=== PATIENT | male | born 1945 | race African-American/Black ===

== ENCOUNTER 2016-06-27 16:34 | Emergency (ER) | payer MEDICARE ==
[~2016-06-27] VITALS: Ht 175.3 cm; Wt 85.3 kg
[2016-06-27 17:29] VITALS: BP 122/92
[2016-06-27] MEDS ORDERED: FLUT16SP NS (17:56)
[2016-06-27] MEDS ORDERED: OMEP20CA9 PO (17:57)
[2016-06-27] MEDS ORDERED: MELO-150 PO (17:58)
[2016-06-27] MEDS ORDERED: SIMV40TA3 PO (17:59)
[2016-06-27] MEDS ORDERED: LOSA1TAB16 PO (18:00)
[2016-06-27] MEDS ORDERED: DIAZEPAM10 MG PO (18:01)
[2016-06-27] MEDS ORDERED: CYCL10TA2 PO (18:02)
[2016-06-27] MEDS ORDERED: HYDR-2666 PO (18:03)
[2016-06-27] MEDS ORDERED: METO25TA9 PO (18:05)
[2016-06-27] MEDS ORDERED: IBUP-1060 PO (18:05)
[2016-06-27] MEDS ORDERED: LINA290C PO (18:06)
[2016-06-27] MEDS ORDERED: FENTANYL PF 100 MCG/2 ML VIAL. IV PRN (18:30)
[2016-06-27 18:55] LABS: BILIRUBIN,URINE NEGATIVE (NEG); GLUCOSE,URINE NEGATIVE (NEG); NITRITE,URINE NEGATIVE (NEG); PH,URINE 5.5; PROTEIN,URINE NEGATIVE (NEG-TRACE); UROBILINOGEN,URINE 0.2 mg/dL (0.2 mg/dL)
[2016-06-27 19:04] LABS: BACTERIA,URINE 0 /HPF (0-FEW); RBC,URINE 0 /HPF (0-2); SQUAMOUS EPITHELIAL CELL,UR FEW /LPF
--- NOTE | 2016-06-27 19:25 | PHYS DOC ---
Past Medical History Past Medical History: CHF, COPD, Hypertension, Other Additional Past Medical Histor: sleep apnea Past Surgical History: Tonsillectomy, Other Additional Past Surgical Histo: pituitary gland surgery, sebaceous cyst removal Additional Information: 5 cigarettes/day. Alcohol Use: Rarely Drug Use: None Adult General Chief Complaint Chief Complaint: FLANK PAIN HPI HPI Patient is a 70 year old male who presents with 4 days of gradually worsening left flank pain. States his pain is intermittent, occurs with movements or randomly. Pain feels like spasms and is severe. He started taking cyclobenzaprine per his primary care doctor but is only had one dose. He denies dysuria, hematuria, abdominal pain, nausea or vomiting, fever or chills, diarrhea, bloody stools. He denies saddle anesthesia, bowel or bladder dysfunction, numbness, tingling, weakness. Review of Systems Review of Systems Constitutional: Denies fever or chills [] Eyes: Denies change in visual acuity, redness, or eye pain [] HENT: Denies nasal congestion or sore throat [] Respiratory: Denies cough or shortness of breath [] Cardiovascular: No additional information not addressed in HPI [] GI: Denies abdominal pain, nausea, vomiting, bloody stools or diarrhea [] : Denies dysuria or hematuria [] Musculoskeletal: Denies joint pain [] Integument: Denies rash or skin lesions [] Neurologic: Denies headache, focal weakness or sensory changes [] Endocrine: Denies polyuria or polydipsia [] Current Medications Current Medications Current Medications Medications (Trade) Dose Ordered Sig/Kady Start Time Stop Time Status Last Admin Dose Admin Fentanyl Citrate (Fentanyl 2ml Vial) 50 mcg PRN Q15MIN PRN 06/27/16 18:30 06/28/16 18:29 06/27/16 19:45 50 MCG Allergies Allergies Allergies Coded Allergies Type Severity Reaction Last Updated Verified propoxyphene Allergy Unknown unknown 01/04/14 Yes Physical Exam Physical Exam Constitutional: Well developed, well nourished, no acute distress, non-toxic appearance. [] HENT: Normocephalic, atraumatic, bilateral external ears normal, oropharynx moist, nose normal. [] Eyes: PERRLA, EOMI. [] Neck: Normal range of motion, supple. [] Cardiovascular:Heart rate regular rhythm [] Lungs & Thorax: Bilateral breath sounds clear to auscultation [] Abdomen: Bowel sounds normal, soft, no tenderness, no pulsatile masses. [] Skin: Warm, dry, no erythema, no rash. [] Back: No midline spinal tenderness, no CVA tenderness. Has right flank paraspinal muscle tenderness with no visual or palpable abnormality. No rash or tenderness with light touch [] Extremities: No tenderness, ROM intact, no edema. [] Neurologic: Alert and oriented X 3, normal motor function, normal sensory function, no focal deficits noted. [] Psychologic: Affect normal, judgement normal, mood normal. [] Current Patient Data Vital Signs Vital Signs Date Time Temp Pulse Resp B/P Pulse Ox O2 Delivery O2 Flow Rate FiO2 06/27/16 19:45 Room Air 06/27/16 17:29 98.6 93 20 122/92 95 98.6 Lab Values Laboratory Tests Test 06/27/16 18:40 Urine Collection Type Unknown Urine Color Yellow Urine Clarity Clear Urine pH 5.5 Urine Specific [place] 1.010 Urine Protein Negativemg/dL (NEG-TRACE) Urine Glucose (UA) Negativemg/dL (NEG) Urine Ketones (Stick) Negativemg/dL (NEG) Urine Blood Negative (NEG) Urine Nitrite Negative (NEG) Urine Bilirubin Negative (NEG) Urine Urobilinogen Dipstick 0.2mg/dL (0.2 mg/dL) Urine Leukocyte Esterase Negative (NEG) Urine RBC 0/HPF (0-2) Urine WBC 1-4/HPF (0-4) Urine Squamous Epithelial Cells Few/LPF Urine Bacteria 0/HPF (0-FEW) Urine Mucus Slight/LPF Radiology/Procedures Radiology/Procedures Ultrasound abdominal aorta IMPRESSION No acute findings. Electronically signed by: Marty Santos MD (Jun 27, 2016 19:44:11) Course & Med Decision Making Course & Med Decision Making Pertinent Labs and Imaging studies reviewed. (See chart for details) Workup is unremarkable. Suspect musculoskeletal pain. Encouraged him to continue muscle relaxer and to follow-up with his primary care doctor. Return precautions given. He and understand and agree with plan. Dragon Disclaimer Dragon Disclaimer This electronic medical record was generated, in whole or in part, using a voice recognition dictation system. Departure Departure Impression: Primary Impression: Right flank pain Disposition: 01 HOME, SELF-CARE Condition: STABLE Referrals: ANATOLIY ZHU MD (PCP) Patient Instructions: Flank Pain, [id number] Additional Instructions: Continue taking cyclobenzaprine as needed for muscle spasms. Follow-up with your primary care doctor. Return for any concerns. Maritza MARKHAM MD Jun 27, 2016 19:25
--- NOTE | 2016-06-27 19:45 | RAD ---
PROCEDURE Ultrasound abdominal aorta HISTORY Right flank pain TECHNIQUE Sonographic examination of the abdominal aorta was performed and multiple static images were obtained. Color Doppler was applied as well as arterial waveforms spectral analysis. FINDINGS The proximal abdominal aorta is not seen due to overlying bowel gas. There is minimal plaque seen in the mid and distal abdominal aorta without aneurysm or dissection or stenosis. IMPRESSION No acute findings. Electronically signed by: Maryt Santos MD (Jun 27, 2016 19:44:11)
== END 2016-06-27 21:12 | disposition home or self-care (01) ==
LOC: ER 16:34
DX: R10.9 Unspecified abdominal pain (principal); J44.9 Chronic obstructive pulmonary disease, unspecified; I11.0 Hypertensive heart disease with heart failure; I50.9 Heart failure, unspecified; G47.30 Sleep apnea, unspecified; F17.210 Nicotine dependence, cigarettes, uncomplicated; Z88.8 Allergy status to other drugs, medicaments and biological substances
CPT/HCPCS: 36415; 76770; 81001; 96374; 99285; J3010

== ENCOUNTER 2017-08-16 15:18 | Inpatient (IN) | payer MEDICARE ==
[2017-08-16 16:18] LABS: ADD MAN DIFF? NO
[2017-08-16 16:20] LABS: BASO % 1 % (0-3); EOS % 1 % (0-3); HEMATOCRIT 44.6 % (39.0-53.0); HEMOGLOBIN 14.9 g/dL (13.0-17.5); LYMPH # 0.9 x10^3/uL (1.0-4.8); LYMPH % 18 % (24-48); MEAN CORPUSCULAR HEMOGLOBIN 31 pg (25-35); MEAN CORPUSCULAR HGB CONC 34 g/dL (31-37); MEAN CORPUSCULAR VOLUME 93 fL (79-100); MONO # 0.3 x10^3/uL (0.0-1.1); MONO % 6 % (0-9); NEUT # 3.8 x10^3uL (1.8-7.7); NEUT % 75 % (31-73); PLATELET COUNT 204 x10^3/uL (140-400); RED BLOOD COUNT 4.78 x10^6/uL (4.30-5.70); RED CELL DISTRIBUTION WIDTH 13.7 % (11.5-14.5); WHITE BLOOD COUNT 5.1 x10^3/uL (4.0-11.0)
[2017-08-16 16:29] LABS: PROTHROMBIN TIME PATIENT 12.8 SEC (11.7-14.0)
[2017-08-16 16:38] LABS: LACTIC ACID 1.5 mmol/L (0.4-2.0)
[2017-08-16 16:43] LABS: ANION GAP 11 (6-14); BLOOD UREA NITROGEN 21 mg/dL (8-26); CALCIUM 8.7 mg/dL (8.5-10.1); CARBON DIOXIDE 25 mmol/L (21-32); CHLORIDE 105 mmol/L (98-107); CREATININE 1.4 mg/dL (0.7-1.3); GFR 60.4; GLUCOSE 111 mg/dL (70-99); POTASSIUM 4.3 mmol/L (3.5-5.1); SODIUM 141 mmol/L (136-145)
[2017-08-16 16:44] LABS: TROPONINI < 0.017 ng/mL (0.000-0.055)
[2017-08-16 16:47] LABS: ALK PHOS 66 U/L (46-116); ALT (SGPT) 15 U/L (16-63); AST (SGOT) 11 U/L (15-37); DIRECT BILIRUBIN 0.1 mg/dL (0.0-0.2); LIPASE 84 U/L (73-393); TOTAL BILIRUBIN 0.5 mg/dL (0.2-1.0)
[2017-08-16 16:48] LABS: NT-PRO BNP 169 pg/mL (0-124)
[2017-08-16 16:48] LABS: CKMB INDEX 0.6 % (0-4); CKMB MASS 0.7 ng/mL (0.0-3.6); CREATINE KINASE 110 U/L (39-308)
[2017-08-16 18:53] LABS: BILIRUBIN,URINE NEGATIVE (NEG); CLARITY,URINE CLEAR; COLOR,URINE YELLOW; GLUCOSE,URINE NEGATIVE (NEG); NITRITE,URINE NEGATIVE (NEG); PH,URINE 6.5; PROTEIN,URINE NEGATIVE (NEG-TRACE)
[2017-08-16 18:59] LABS: BACTERIA,URINE 0 /HPF (0-FEW); HYALINE CASTS, URINE FEW /HPF; RBC,URINE RARE /HPF (0-2); WBC,URINE OCC /HPF (0-4)
[2017-08-16 19:00] LABS: AMPHETAMINE/METHAMPHETAMINE NEG (NEG); BARBITURATES NEG (NEG); BENZODIAZEPINES POS (NEG); CANNABINOIDS NEG (NEG); COCAINE NEG (NEG); ETHANOL, URINE NEG (NEG); METHADONE NEG (NEG); OPIATES POS (NEG); PHENCYCLIDINE NEG (NEG)
[2017-08-16] MEDS ORDERED: ONDANSETRON PF 4 MG/2 ML VIAL. IV (19:30)
[2017-08-16] MEDS: ASPIRIN 325 MG TABLET PO (20:07)
[2017-08-16] MEDS ORDERED: HYDROcodone/APAP 5/325MG 1 TAB TABLET PO (21:45)
[2017-08-16] MEDS ORDERED: POLYETHYLENE GLYCOL 3350 17 GM PACKET. PO (21:45)
[2017-08-16] MEDS: diazePAM 5 MG TABLET PO (22:00)
[2017-08-16] MEDS: SIMVASTATIN 40 MG TABLET. PO (22:00)
[2017-08-16] MEDS: CYCLOBENZAPRINE 10 MG TABLET. PO (22:00)
[2017-08-16 23:35] LABS: TROPONINI < 0.017 ng/mL (0.000-0.055)
[2017-08-17 01:41] LABS: ADD MAN DIFF? NO
[2017-08-17 02:00] LABS: BASO % 1 % (0-3); EOS # 0.1 x10^3/uL (0.0-0.7); EOS % 1 % (0-3); HEMATOCRIT 43.6 % (39.0-53.0); HEMOGLOBIN 14.5 g/dL (13.0-17.5); LYMPH # 1.5 x10^3/uL (1.0-4.8); LYMPH % 22 % (24-48); MEAN CORPUSCULAR HEMOGLOBIN 31 pg (25-35); MEAN CORPUSCULAR HGB CONC 33 g/dL (31-37); MEAN CORPUSCULAR VOLUME 94 fL (79-100); MONO # 0.5 x10^3/uL (0.0-1.1); MONO % 8 % (0-9); NEUT # 4.7 x10^3uL (1.8-7.7); NEUT % 68 % (31-73); PLATELET COUNT 204 x10^3/uL (140-400); RED BLOOD COUNT 4.65 x10^6/uL (4.30-5.70); RED CELL DISTRIBUTION WIDTH 14.1 % (11.5-14.5); WHITE BLOOD COUNT 6.9 x10^3/uL (4.0-11.0)
[2017-08-17 02:22] LABS: TROPONINI < 0.017 ng/mL (0.000-0.055)
[2017-08-17 03:31] LABS: ALBUMIN 3.7 g/dL (3.4-5.0); ALBUMIN/GLOBULIN RATIO 1.2 (1.0-1.7); ALK PHOS 65 U/L (46-116); ALT (SGPT) 14 U/L (16-63); ANION GAP 14 (6-14); AST (SGOT) 11 U/L (15-37); BLOOD UREA NITROGEN 21 mg/dL (8-26); BUN/CREATININE RATIO 15 (6-20); CALCIUM 8.8 mg/dL (8.5-10.1); CARBON DIOXIDE 23 mmol/L (21-32); CHLORIDE 105 mmol/L (98-107); CREATININE 1.4 mg/dL (0.7-1.3); GFR 60.4; GLUCOSE 144 mg/dL (70-99); POTASSIUM 3.8 mmol/L (3.5-5.1); SODIUM 142 mmol/L (136-145); TOTAL BILIRUBIN 0.5 mg/dL (0.2-1.0); TOTAL PROTEIN 6.9 g/dL (6.4-8.2)
[2017-08-17 08:22] LABS: VITAMIN-B12 332 pg/mL (247-911)
[2017-08-17] MEDS ORDERED: NON FORMULARY ITEM (Losartan/Hydrochlorothiazide (Losartan-Hctz 50-12.5 Mg Tab) 1 EACH) PO (09:00)
[2017-08-17] MEDS: diazePAM 5 MG TABLET PO ×4 (09:00→21:08)
[2017-08-17] MEDS ORDERED: INFLUENZA VAX SCREEN BY RX. MC (09:00)
[2017-08-17] MEDS: POLYETHYLENE GLYCOL 3350 17 GM PACKET. PO (09:00)
[2017-08-17] MEDS ORDERED: METOPROLOL SUCC 24HR ER 25 MG TAB.ER.24H. PO (09:00)
[2017-08-17] MEDS: CYCLOBENZAPRINE 10 MG TABLET. PO ×3 (09:00→21:08)
[2017-08-17] MEDS ORDERED: ONDANSETRON PF 4 MG/2 ML VIAL. IV (09:30)
[2017-08-17] MEDS: FLUTICASONE 50MCG/NASAL SPRAY 16GM BOTTLE. NS (09:57)
[2017-08-17] MEDS: LOSARTAN POTASSIUM 50 MG TABLET. PO (09:58)
[2017-08-17] MEDS: hydroCHLOROthiazide 12.5 MG CAPSULE PO (09:58)
[2017-08-17] MEDS: PANTOPRAZOLE 40 MG TABLET.DR. PO (09:58)
[2017-08-17] MEDS: MELOXICAM 7.5 MG TABLET PO (09:58)
[2017-08-17] MEDS: ASPIRIN 325 MG TABLET PO (10:00)
[2017-08-17 10:26] LABS: CHOLESTEROL 159 mg/dL (0-200); HDLC 70 mg/dL (40-60); LDLC 67 mg/dL (0-100); NON-HDL CHOLESTEROL 89 mg/dL (0-129); TRIGLYCERIDES 108 mg/dL (0-150); VLDLC 22 mg/dL (0-40)
[2017-08-17 10:27] LABS: CHOLESTEROL/HDL RATIO 2.3
[2017-08-17] MEDS: GADOBUTROL 7.5 MMOL/7.5 ML VIAL IV (11:50)
[2017-08-17] MEDS: LINACLOTIDE 145 MCG CAPSULE. PO ×2 (12:45→13:26)
[2017-08-17] MEDS: CITALOPRAM 20 MG TABLET. PO (13:25)
[2017-08-17] MEDS ORDERED: PRIMIDONE 50 MG TABLET PO (14:00)
[2017-08-17] MEDS: ASPIRIN ENTERIC COATED 81 MG TABLET.DR. PO (14:49)
[2017-08-17] MEDS: SIMVASTATIN 40 MG TABLET. PO (21:08)
[2017-08-17] MEDS: ACETAMINOPHEN 500 MG TABLET PO (21:12)
[2017-08-18] MEDS: LINACLOTIDE 145 MCG CAPSULE. PO (06:04)
[2017-08-18] MEDS: CYCLOBENZAPRINE 10 MG TABLET. PO ×3 (07:46→20:08)
[2017-08-18] MEDS: POLYETHYLENE GLYCOL 3350 17 GM PACKET. PO (09:00)
[2017-08-18] MEDS: FLUTICASONE 50MCG/NASAL SPRAY 16GM BOTTLE. NS (09:00)
[2017-08-18] MEDS: diazePAM 5 MG TABLET PO ×3 (09:00→20:08)
[2017-08-18] MEDS ORDERED: ASPIRIN ENTERIC COATED 81 MG TABLET.DR. PO (09:00)
[2017-08-18] MEDS: MELOXICAM 7.5 MG TABLET PO (09:00)
[2017-08-18] MEDS: CITALOPRAM 20 MG TABLET. PO (09:02)
[2017-08-18] MEDS: PANTOPRAZOLE 40 MG TABLET.DR. PO (09:02)
[2017-08-18] MEDS: ASPIRIN ENTERIC COATED 81 MG TABLET.DR. PO (09:02)
[2017-08-18] MEDS: hydroCHLOROthiazide 12.5 MG CAPSULE PO (09:02)
[2017-08-18] MEDS: LOSARTAN POTASSIUM 50 MG TABLET. PO (09:02)
[2017-08-18] MEDS: SIMVASTATIN 40 MG TABLET. PO (20:11)
[2017-08-18 21:11] LABS: FSH 14.5 mIU/mL (1.5-12.4)
[2017-08-18 21:11] LABS: LUTEINIZING HORMONE 5.9 mIU/mL (1.7-8.6); PROLACTIN 8.9 ng/mL (4.0-15.2)
[2017-08-19] MEDS: LINACLOTIDE 145 MCG CAPSULE. PO (06:23)
[2017-08-19] MEDS: ASPIRIN ENTERIC COATED 81 MG TABLET.DR. PO (07:53)
[2017-08-19] MEDS: PANTOPRAZOLE 40 MG TABLET.DR. PO (07:53)
[2017-08-19] MEDS: FLUTICASONE 50MCG/NASAL SPRAY 16GM BOTTLE. NS (09:21)
[2017-08-19] MEDS: hydroCHLOROthiazide 12.5 MG CAPSULE PO (09:22)
[2017-08-19] MEDS: LOSARTAN POTASSIUM 50 MG TABLET. PO (09:23)
[2017-08-19] MEDS: diazePAM 5 MG TABLET PO ×3 (09:24→20:34)
[2017-08-19] MEDS: MELOXICAM 7.5 MG TABLET PO (09:24)
[2017-08-19] MEDS: POLYETHYLENE GLYCOL 3350 17 GM PACKET. PO (09:24)
[2017-08-19] MEDS: CYCLOBENZAPRINE 10 MG TABLET. PO ×3 (09:24→20:34)
[2017-08-19] MEDS: CITALOPRAM 20 MG TABLET. PO (09:24)
[2017-08-19] MEDS: SIMVASTATIN 40 MG TABLET. PO (20:34)
[2017-08-20] MEDS: LINACLOTIDE 145 MCG CAPSULE. PO ×2 (06:36→08:29)
[2017-08-20] MEDS: POLYETHYLENE GLYCOL 3350 17 GM PACKET. PO ×2 (08:27→09:00)
[2017-08-20] MEDS: MELOXICAM 7.5 MG TABLET PO (08:29)
[2017-08-20] MEDS: ACETAMINOPHEN 500 MG TABLET PO (08:29)
[2017-08-20] MEDS: CITALOPRAM 20 MG TABLET. PO (08:29)
[2017-08-20] MEDS: IBUPROFEN 800 MG TABLET. PO (08:29)
[2017-08-20] MEDS: PANTOPRAZOLE 40 MG TABLET.DR. PO (08:30)
[2017-08-20] MEDS: LOSARTAN POTASSIUM 50 MG TABLET. PO (08:30)
[2017-08-20] MEDS: hydroCHLOROthiazide 12.5 MG CAPSULE PO ×2 (08:30→09:00)
[2017-08-20] MEDS: CYCLOBENZAPRINE 10 MG TABLET. PO ×3 (08:31→21:13)
[2017-08-20] MEDS: diazePAM 5 MG TABLET PO ×3 (08:31→21:13)
[2017-08-20] MEDS: ASPIRIN ENTERIC COATED 81 MG TABLET.DR. PO (08:33)
[2017-08-20] MEDS: FLUTICASONE 50MCG/NASAL SPRAY 16GM BOTTLE. NS (08:33)
[2017-08-20] MEDS: SIMVASTATIN 40 MG TABLET. PO (21:13)
[2017-08-21] MEDS: PANTOPRAZOLE 40 MG TABLET.DR. PO (07:43)
[2017-08-21] MEDS: hydroCHLOROthiazide 12.5 MG CAPSULE PO (08:53)
[2017-08-21] MEDS: ASPIRIN ENTERIC COATED 81 MG TABLET.DR. PO (08:53)
[2017-08-21] MEDS: POLYETHYLENE GLYCOL 3350 17 GM PACKET. PO (08:53)
[2017-08-21] MEDS: MELOXICAM 7.5 MG TABLET PO (08:53)
[2017-08-21] MEDS: LOSARTAN POTASSIUM 50 MG TABLET. PO (08:54)
[2017-08-21] MEDS: diazePAM 5 MG TABLET PO (08:54)
[2017-08-21] MEDS: CITALOPRAM 20 MG TABLET. PO (08:54)
[2017-08-21] MEDS: CYCLOBENZAPRINE 10 MG TABLET. PO (08:54)
[2017-08-21] MEDS: FLUTICASONE 50MCG/NASAL SPRAY 16GM BOTTLE. NS (09:16)
[2017-08-21 15:29] LABS: GROWTH HORMONE 0.1 ng/mL (0.0-10.0)
== END 2017-08-21 12:00 | disposition home or self-care (01) | DRG 69 ==
LOC: ER 15:18 → 2 NORTH 18:00
DX: G45.9 Transient cerebral ischemic attack, unspecified (principal); E11.9 Type 2 diabetes mellitus without complications; I11.0 Hypertensive heart disease with heart failure; I50.9 Heart failure, unspecified; I07.1 Rheumatic tricuspid insufficiency; D35.2 Benign neoplasm of pituitary gland; H93.19 Tinnitus, unspecified ear; E78.5 Hyperlipidemia, unspecified; F17.210 Nicotine dependence, cigarettes, uncomplicated; G47.33 Obstructive sleep apnea (adult) (pediatric); I25.10 Atherosclerotic heart disease of native coronary artery without angina pectoris; J31.0 Chronic rhinitis; J44.9 Chronic obstructive pulmonary disease, unspecified; K21.9 Gastro-esophageal reflux disease without esophagitis; I35.0 Nonrheumatic aortic (valve) stenosis; D32.9 Benign neoplasm of meninges, unspecified; F32.9 Major depressive disorder, single episode, unspecified; F41.9 Anxiety disorder, unspecified; M19.90 Unspecified osteoarthritis, unspecified site; Z88.8 Allergy status to other drugs, medicaments and biological substances; Z79.82 Long term (current) use of aspirin; Z79.899 Other long term (current) drug therapy; Z82.49 Family history of ischemic heart disease and other diseases of the circulatory system; Z86.011 Personal history of benign neoplasm of the brain
CPT/HCPCS: 36415; 70450; 70553; 71045; 80048; 80053; 80061; 80076; 80307; 81001; 82533; 82553; 82607; 83001; 83002; 83003; 83605; 83690; 83735; 83880; 84146; 84443; 84484; 85025; 85610; 92610-GN; 93005; 93306; 93880; 97110-GP; 97116-GP; 97162-GP; 97165-GO; 99285-25; A9585

== ENCOUNTER 2019-11-01 14:40 | Emergency (ER) | payer MEDICARE ==
[~2019-11-01] VITALS: Ht 175.3 cm; Wt 75.0 kg
[~2019-11-01 14:40] MED LIST: ASPI-482 PO; CYCL10TA2 PO; DIAZEPAM10 MG PO; ESCITALOPRAM OX10 MG PO; FLUT16SP NS; HYDR-2761 PO; IBUP-1060 PO; LINZESS290 MCG PO; LOSA1TAB19 PO; MELO15TA23 PO; METO-239 PO; OMEP20CA16 PO; SIMV40TA18 PO
[2019-11-01] MEDS ORDERED: LIDO:MAALOX 1:1 20 ML SINGLE DOSE. SWSW ONE (16:15)
[2019-11-01] MEDS ORDERED: PROMETHAZINE 12.5 MG TABLET. PO ONE (16:15)
[2019-11-01 16:19] LABS: BILIRUBIN,URINE NEGATIVE (NEG); CLARITY,URINE CLEAR; COLOR,URINE YELLOW; NITRITE,URINE NEGATIVE (NEG); PH,URINE 6.5 (<5.0-8.0); PROTEIN,URINE NEGATIVE (NEG-TRACE); UROBILINOGEN,URINE 0.2 mg/dL (0.2 mg/dL)
[2019-11-01 16:24] LABS: BACTERIA,URINE 0 /HPF (0-FEW); RBC,URINE 0 /HPF (0-2); WBC,URINE OCC /HPF (0-4)
[2019-11-01 16:35] LABS: BASO % 1 % (0-3); EOS % 1 % (0-3); HEMATOCRIT 40.4 % (39.0-53.0); HEMOGLOBIN 14.1 g/dL (13.0-17.5); LYMPH # 1.1 x10^3/uL (1.0-4.8); LYMPH % 19 % (24-48); MEAN CORPUSCULAR HEMOGLOBIN 32 pg (25-35); MEAN CORPUSCULAR HGB CONC 35 g/dL (31-37); MEAN CORPUSCULAR VOLUME 91 fL (79-100); MONO # 0.4 x10^3/uL (0.0-1.1); MONO % 7 % (0-9); NEUT # 4.1 x10^3/uL (1.8-7.7); NEUT % 72 % (31-73); PLATELET COUNT 246 x10^3/uL (140-400); RED BLOOD COUNT 4.42 x10^6/uL (4.30-5.70); RED CELL DISTRIBUTION WIDTH 13.4 % (11.5-14.5); WHITE BLOOD COUNT 5.7 x10^3/uL (4.0-11.0)
[2019-11-01 16:44] LABS: CREATININE 1.6 mg/dL (0.7-1.3); GFR 51.5; POTASSIUM 4.7 mmol/L (3.5-5.1)
--- NOTE | 2019-11-01 17:00 | RAD ---
CHEST PA LATERAL History: Loss of appetite. Taste disturbances. Comparison: 08/16/2017 Portable Chest X-ray Exam. Findings: Frontal and lateral views of the chest were obtained. The cardiomediastinal silhouette is normal. Pulmonary vasculature is normal. The lungs are clear. Calcified granuloma involves the left upper lung. No pleural effusion or pneumothorax is seen. There is no acute bone abnormality. IMPRESSION: No acute cardiopulmonary process. Electronically signed by: Zion Farias MD (11/01/2019 4:57 PM) [id number]
[2019-11-01] MEDS ORDERED: maalox (17:49)
[2019-11-01] MEDS ORDERED: PROM25TA10 PO (17:50)
--- NOTE | 2019-11-01 17:55 | PHYS DOC ---
Past Medical History Past Medical History: Anxiety, CHF, COPD, Depression, GERD, High Cholesterol, Hypertension, Other Additional Past Medical Histor: sleep apnea, BRAIN TUMORS-"BENIGN" Past Surgical History: Tonsillectomy, Other Additional Past Surgical Histo: pituitary gland surgery, sebaceous cyst removal Smoking Status: Current Every Day Smoker Alcohol Use: None Drug Use: None General Adult EDM: Chief Complaint: OTHER COMPLAINTS HPI: HPI: Patient is a 74 year old male who presents with taste disturbances. Patient states that no matter what he eats at all tastes like a teaspoon of sugar. This is been ongoing for a month. He is seen ENT and his primary for this. He has been on nystatin for it which helped for 2 days and now no longer helps. He states he is unable to eat because the taste makes him very nauseous. Review of Systems: Review of Systems: General: Denies fever, chills, sweats, fatigue Eyes: Denies drainage, blurred vision HENT: Denies rhinorrhea, sore throat Respiratory: Denies cough, shortness of breath, wheezing Cardiac: Denies edema, palpitations, chest pain GI: Denies abdominal pain, N/V MSK: Denies back pain, neck pain Skin: Denies rash, jaundice Neuro: Denies headache, dizziness Psychiatric: Denies SI/HI Heart Score: Risk Factors: Risk Factors: DM, Current or recent (<one month) smoker, HTN, HLP, family history of CAD, obesity. Risk Scores: Score 0 - 3: 2.5% MACE over next 6 weeks - Discharge Home Score 4 - 6: 20.3% MACE over next 6 weeks - Admit for Clinical Observation Score 7 - 10: 72.7% MACE over next 6 weeks - Early Invasive Strategies Current Medications: Current Medications Medications (Trade) Dose Ordered Sig/Kady Start Time Stop Time Status Last Admin Dose Admin Multi-Ingredient Mouthwash/Gargle (Gi Cocktail) 20 ml 1X ONCE 11/01/19 16:15 11/01/19 16:18 DC 11/01/19 16:39 20 ML Promethazine HCl (Phenergan) 12.5 mg 1X ONCE 11/01/19 16:15 11/01/19 16:18 DC 11/01/19 16:39 12.5 MG Allergies: Allergies: Allergies Coded Allergies Type Severity Reaction Last Updated Verified propoxyphene Allergy Unknown unknown 01/04/14 Yes Physical Exam: PE: Constitutional: Well developed, well nourished, Cooperative, NAD, non-toxic appearing HEENT: Normocephalic, atraumatic, oropharynx moist, EOMI, PERRL, no drainage from eyes, normal conjunctiva Neck: Supple, normal range of motion, no stridor Cardiovascular: RRR, 2+ radial pulses bilaterally, no edema Respiratory: CTA bilaterally, no respiratory distress, no wheezing/crackles Abdomen: Soft, nontender, nondistended, no masses Skin: Warm, dry, intact Extremities: No obvious deformities Neurologic: Alert and Oriented x3, motor and sensory function grossly normal, no focal deficits Psychologic: Normal affect, normal judgment, normal mood. No SI/HI Current Patient Data: Labs: Laboratory Tests Test 11/01/19 16:09 11/01/19 16:20 Urine Collection Type Unknown Urine Color Yellow Urine Clarity Clear Urine pH 6.5 (<5.0-8.0) Urine Specific [place] <=1.005 (1.000-1.030) Urine Protein Negative mg/dL (NEG-TRACE) Urine Glucose (UA) Negative mg/dL (NEG) Urine Ketones (Stick) Negative mg/dL (NEG) Urine Blood Negative (NEG) Urine Nitrite Negative (NEG) Urine Bilirubin Negative (NEG) Urine Urobilinogen Dipstick 0.2 mg/dL (0.2 mg/dL) Urine Leukocyte Esterase Negative (NEG) Urine RBC 0 /HPF (0-2) Urine WBC Occ /HPF (0-4) Urine Bacteria 0 /HPF (0-FEW) White Blood Count 5.7 x10^3/uL (4.0-11.0) Red Blood Count 4.42 x10^6/uL (4.30-5.70) Hemoglobin 14.1 g/dL (13.0-17.5) Hematocrit 40.4 % (39.0-53.0) Mean Corpuscular Volume 91 fL (79-100) Mean Corpuscular Hemoglobin 32 pg (25-35) Mean Corpuscular Hemoglobin Concent 35 g/dL (31-37) Red Cell Distribution Width 13.4 % (11.5-14.5) Platelet Count 246 x10^3/uL (140-400) Neutrophils (%) (Auto) 72 % (31-73) Lymphocytes (%) (Auto) 19 % (24-48) L Monocytes (%) (Auto) 7 % (0-9) Eosinophils (%) (Auto) 1 % (0-3) Basophils (%) (Auto) 1 % (0-3) Neutrophils # (Auto) 4.1 x10^3/uL (1.8-7.7) Lymphocytes # (Auto) 1.1 x10^3/uL (1.0-4.8) Monocytes # (Auto) 0.4 x10^3/uL (0.0-1.1) Eosinophils # (Auto) 0.0 x10^3/uL (0.0-0.7) Basophils # (Auto) 0.0 x10^3/uL (0.0-0.2) Sodium Level 128 mmol/L (136-145) L Potassium Level 4.7 mmol/L (3.5-5.1) Chloride Level 94 mmol/L (98-107) L Carbon Dioxide Level 24 mmol/L (21-32) Anion Gap 10 (6-14) Blood Urea Nitrogen 21 mg/dL (8-26) Creatinine 1.6 mg/dL (0.7-1.3) H Estimated GFR (Cockcroft-Gault) 51.5 Glucose Level 108 mg/dL (70-99) H Calcium Level 9.0 mg/dL (8.5-10.1) Laboratory Tests 11/01/19 16:20 Laboratory Tests 11/01/19 16:20 Vital Signs: Vital Signs Date Time Temp Pulse Resp B/P (MAP) Pulse Ox O2 Delivery O2 Flow Rate FiO2 11/01/19 14:58 99.6 65 18 127/82 (97) 99 Room Air 99.6 EKG: EKG: [] Radiology/Procedures: Radiology/Procedures: [] Course & Med Decision Making: Course & Med Decision Making Pertinent Labs and Imaging studies reviewed. (See chart for details) Patient is 74-year-old male who presents to the emergency room with taste disturbances. As this is been ongoing orders were placed to rule out rare causes of taste disturbances including SIADH, lung cancer, diabetes. BMP was normal and UA was negative for glucose making diabetes unlikely. Chest x-ray did not show a mass. There is no signs of SIADH. It is unclear at this time what is causing his taste disturbance. I discussed with him that he will need to follow-up with ENT who he is seen for this previously. We will do Magic mouthwash and have him follow-up. Patient's test results and vitals while in the ED were fully reviewed and discussed with the patient. Patient is stable and at this time does not need admission to the hospital. We have discussed strict return precautions and the importance of following up with their Primary Care Physician. Patient stated understanding and was given an opportunity to ask any questions. Dragon Disclaimer: Dragon Disclaimer: This electronic medical record was generated, in whole or in part, using a voice recognition dictation system. Departure Departure Impression: Primary Impression: Taste disorder Disposition: HOME, SELF-CARE Condition: GOOD Referrals: Gilma Reynoso Patient Instructions: Nausea, Adult Scripts Promethazine Hcl (PROMETHAZINE HCL) 25 Mg Tablet 1 TAB PO PRN Q6HRS, #20 TAB Prov: EMIGDIO PADILLA MD 11/01/19 [maalox] No Conflict Check Prov: EMIGDIO PADILLA MD 11/01/19 Justicifation of Admission Dx: Justifications for Admission: Justification of Admission Dx: No EMIGDIO PADILLA MD Nov 01, 2019 17:55
[2019-11-01 18:00] VITALS: BP 122/62
== END 2019-11-01 18:00 | disposition home or self-care (01) ==
LOC: ER 14:40
DX: K14.8 Other diseases of tongue (principal); R11.0 Nausea; K21.9 Gastro-esophageal reflux disease without esophagitis; J44.9 Chronic obstructive pulmonary disease, unspecified; I11.0 Hypertensive heart disease with heart failure; I50.9 Heart failure, unspecified; F17.200 Nicotine dependence, unspecified, uncomplicated; Z88.8 Allergy status to other drugs, medicaments and biological substances
CPT/HCPCS: 36415; 71046; 80048; 81001; 85025; 99284; Q0169